=== PATIENT | female | born 1930 | race Two or more races ===

== ENCOUNTER 2016-11-24 15:52 | Inpatient (IN) | payer MEDICAID, OTHER ==
[~2016-11-24] VITALS: Ht 154.9 cm; Wt 56.5 kg
[2016-11-24] MEDS ORDERED: SOD CHLORIDE 0.9% 1,000 ML IV STA (16:04)
[2016-11-24] MEDS ORDERED: ONDANSETRON 4 MG INJ IV STA (16:04)
[2016-11-24] MEDS ORDERED: HYDR-3672 PO (16:11)
[2016-11-24] MEDS ORDERED: DONE5TAB7 PO (16:11)
[2016-11-24] MEDS ORDERED: FER325 PO (16:11)
[2016-11-24] MEDS ORDERED: ASPI-664 PO (16:12)
[2016-11-24] MEDS ORDERED: METO-429 PO (16:12)
[2016-11-24] MEDS ORDERED: AMLO-147 PO (16:12)
[2016-11-24] MEDS ORDERED: SIMV40TA2 PO (16:13)
[2016-11-24] MEDS ORDERED: SIMV20TA PO (16:13)
[2016-11-24 17:14] LABS: BASOPHIL # 0.1 10^3/ul (0.0-0.1); BASOPHILS % 0.5 % (0.0-2.0); EOSINOPHILS # 0.3 10^3/ul (0.0-0.5); EOSINOPHILS % 2.1 % (0.0-7.0); HEMATOCRIT 41.7 % (37.0-47.0); HEMOGLOBIN 13.6 g/dl (12.0-16.0); LYMPHOCYTES % 16.8 % (15.0-51.0); MEAN CORPUSCULAR HEMOGLOBIN 29.1 pg (29.0-33.0); MEAN CORPUSCULAR HGB CONC 32.6 g/dl (32.0-37.0); MEAN CORPUSCULAR VOLUME 89.1 fl (82.0-101.0); MEAN PLATELET VOLUME 9.8 fl (7.4-10.4); MONOCYTE # 0.8 10^3/ul (0.3-0.9); MONOCYTES % 6.9 % (0.0-11.0); NEUTROPHIL # 8.5 10^3/ul (1.6-7.5); NEUTROPHILS % 73.4 % (39.0-77.0); PLATELET COUNT 225 10^3/UL (140-415); RED BLOOD COUNT 4.68 10^6/ul (4.20-5.40); WHITE BLOOD COUNT 11.7 10^3/ul (4.8-10.8)
[2016-11-24 17:24] LABS: ADD UMIC YES; UR ASCORBIC ACID NEGATIVE (NEGATIVE); UR BACTERIA MANY /HPF (NONE SEEN); UR BILIRUBIN (Dip) NEGATIVE (NEGATIVE); UR BLOOD (Dip) 1+ mg/dL (NEGATIVE); UR CLARITY CLOUDY (CLEAR); UR COLOR AMBER (YELLOW); UR GLUCOSE (Dip) NEGATIVE (NEGATIVE); UR KETONES (Dip) NEGATIVE (NEGATIVE); UR LEUKOCYTE ESTERASE (Dip) 2+ Leu/ul (NEGATIVE); UR MUCUS FEW /HPF (NONE SEEN); UR NITRITE (Dip) NEGATIVE (NEGATIVE); UR RBC 18 /HPF (0-5); UR SPECIFIC GRAVITY (Dip) 1.016 (1.003-1.030); UR TOTAL PROTEIN (Dip) 2+ mg/dl (NEGATIVE); UR UROBILINOGEN (Dip) 2+ mg/dL (NEGATIVE)
[2016-11-24 17:31] LABS: CALCIUM 10.1 mg/dl (8.4-10.2); CREATININE 2.11 mg/dl (0.44-1.00); POTASSIUM 3.3 mmol/L (3.5-5.1)
[2016-11-24 17:43] LABS: TROPONIN-I 0.052 ng/ml (0.00-0.12)
[2016-11-24] MEDS ORDERED: CEFEPIME 1GM/50 ML (PMX) 50 ML IVPB ONE (18:00)
[2016-11-24] MEDS ORDERED: ACETAMINOPHEN 325 MG TAB PO PRN ×2 (18:30→20:30)
[2016-11-24] MEDS ORDERED: ONDANSETRON 4 MG INJ IV PRN (18:30)
[2016-11-24] MEDS ORDERED: SOD CHLORIDE 0.9% 1,000 ML IV ONE (18:30)
[2016-11-24] MEDS ORDERED: POTASSIUM CHLORIDE (SR) 20 MEQ TAB PO STA (19:22)
--- NOTE | 2016-11-24 19:28 | ERA ---
ER Documentation Chief Complaint Date/Time DATE: 11/24/16 TIME: 19:12 Chief Complaint BIB [facility] FOR EVAL OF HYPOTENSION. WAS AT MD'S OFFICE TO CHECK MONTANO. HPI This 86-year-old female was sent in after routine appointment at her doctor's office for a headache when they took her blood pressure and noticed significant hypotension with her blood pressure of 80/40. Patient does have some generalized weakness along with her headache. She denies any trauma to the head. Is a generalized headache is not the worst of her life and it did come on gradually. He has had chills but no fever. Denies chest pain shortness of breath. ROS All systems reviewed and are negative except as per history of present illness. Medications Home Meds Reported Medications Simvastatin* (Zocor*) 40 Mg Tablet, 40 MG PO DAILY, #30 TAB 11/24/16 Simvastatin* (Zocor*) 20 Mg Tablet, 20 MG PO QHS, #30 TAB 11/24/16 Amlodipine Besylate* (Amlodipine Besylate*) 10 Mg Tablet, 10 MG PO DAILY, #30 TAB 11/24/16 Aspirin* (Aspirin* EC) 81 Mg Tablet.dr, 81 MG PO DAILY, TAB 11/24/16 Metoprolol Tartrate* (Lopressor*) 50 Mg Tab, 50 MG PO BID, #60 TAB 11/24/16 Ferrous Sulfate* (Ferrous Sulfate*) 325 Mg Tabec, 325 MG PO QAM, TAB 11/24/16 Hydralazine Hcl* (Hydralazine Hcl*) 50 Mg Tab, 50 MG PO TID, #90 TAB 11/24/16 Donepezil* (Donepezil*) 5 Mg Tablet, 5 MG PO DAILY, #30 TAB 11/24/16 Allergies Allergies: Coded Allergies: No Known Allergy (Unverified , 11/24/16) PMhx/Soc History of Surgery: Yes (angioplasty) Anesthesia Reaction: No Hx Neurological Disorder: Yes (dementia) Hx Respiratory Disorders: No Hx Cardiac Disorders: Yes (HTN, HYPERLIPIDS, CAD) Hx Psychiatric Problems: No Hx Miscellaneous Medical Probl: Yes (DM, 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 Neck: Full range of motion..~No JVD Resp: Clear to auscultation bilaterally Cardio: Regular rate and rhythm, no murmurs Abd: Soft, non tender, non distended. Normal bowel sounds Skin: No petechiae or rashes Back: No midline or flank tenderness Ext: No cyanosis, or edema Neur: Awake and alert and oriented 3, no focal deficits, cranial nerves II through XII intact, finger to nose cerebellar normal Psych: Normal Mood and Affect Result Diagram: 11/24/16 1645 11/24/16 1645 Results 24 hrs Laboratory Tests Test 11/24/16 16:45 White Blood Count 11.710^3/ul Red Blood Count 4.6810^6/ul Hemoglobin 13.6g/dl Hematocrit 41.7% Mean Corpuscular Volume 89.1fl Mean Corpuscular Hemoglobin 29.1pg Mean Corpuscular Hemoglobin Concent 32.6g/dl Red Cell Distribution Width 12.0% Platelet Count 34113^3/UL Mean Platelet Volume 9.8fl Neutrophils % 73.4% Lymphocytes % 16.8% Monocytes % 6.9% Eosinophils % 2.1% Basophils % 0.5% Nucleated Red Blood Cells % 0.0/100WBC Neutrophils # 8.510^3/ul Lymphocytes # 2.010^3/ul Monocytes # 0.810^3/ul Eosinophils # 0.310^3/ul Basophils # 0.110^3/ul Nucleated Red Blood Cells # 0.010^3/ul Urine Color MARITA Urine Clarity CLOUDY Urine pH 5.0 Urine Specific [place] 1.016 Urine Ketones NEGATIVEmg/dL Urine Nitrite NEGATIVEmg/dL Urine Bilirubin NEGATIVEmg/dL Urine Urobilinogen 2+mg/dL Urine Leukocyte Esterase 2+Sandeep/ul Urine Microscopic RBC 18/HPF Urine Microscopic WBC 43/HPF Urine Calcium Oxalate Crystals FEW/HPF Urine Bacteria MANY/HPF Urine Mucus FEW/HPF Urine Hemoglobin 1+mg/dL Urine Glucose NEGATIVEmg/dL Urine Total Protein 2+mg/dl Sodium Level 138mmol/L Potassium Level 3.3mmol/L Chloride Level 100mmol/L Carbon Dioxide Level 28mmol/L Anion Gap 13 Blood Urea Nitrogen 24mg/dl Creatinine 2.11mg/dl Glucose Level 156mg/dl Calcium Level 10.1mg/dl Troponin I 0.052ng/ml Current Medications Medications (Trade) Dose Ordered Sig/Kwasi Route PRN Reason Start Time Stop Time Status Last Admin Dose Admin Sodium Chloride (NS) 1,000 ml @ 1,000 mls/hr Q1H STAT IV 11/24/16 16:04 11/24/16 17:03 DC 11/24/16 16:45 Ondansetron HCl 4 mg 4 mg ONCE STAT IV 11/24/16 16:04 11/24/16 16:06 DC 11/24/16 16:45 Cefepime HCl 50 ml @ 100 mls/hr ONCE ONCE IVPB 11/24/16 18:00 11/24/16 18:29 DC 11/24/16 19:07 Sodium Chloride (NS) 1,000 ml @ 1,000 mls/hr Q1H ONCE IV 11/24/16 18:30 11/24/16 19:29 11/24/16 19:07 Ondansetron HCl (Zofran Inj) 4 mg BRIDGE ORDER PRN IV NAUSEA AND/OR VOMITING 11/24/16 18:30 11/25/16 18:29 Acetaminophen (Tylenol Tab) 650 mg ER BRIDGE PRN PO MILD PAIN/FEVER 11/24/16 18:30 11/25/16 18:29 Procedures/MDM Urinary tract infection with leukocytosis and renal insufficiency. This is likely the cause of hypotension and generalized weakness in this elderly female. She was hydrated with 2 L of normal saline. Extremely low blood pressure was not repeated in the emergency room. Patient received 1 g of cefepime and urine culture was obtained. She will be admitted for further monitoring possible hypotension. There are currently no signs of a cardiac cause of hypotension the patient does have a left bundle branch block.. Is also given Zofran IV and was able to then tolerate a potassium pill of hypokalemia. Spoke with Dr. Kan who is admitting to the medical surgical floor for further monitoring and treatment EKG interpretation: Normal sinus rhythm rate of 65, left axis deviation, left bundle branch block, no ST or T-wave changes concerning for acute ischemia insole and heel stiffener interpretation: Normal sinus rhythm without arrhythmia . Departure Diagnosis: Primary Impression: UTI (urinary tract infection) Additional Impressions: Hypotension Renal insufficiency Condition: LUIS Mcneil DO Nov 24, 2016 19:23
[2016-11-24 20:00] VITALS: Ht 154.9 cm; Wt 56.5 kg
[2016-11-24] MEDS: SOD CHLORIDE 0.9% 1,000 ML IV SCH ×2 (20:30→20:45)
[2016-11-24] MEDS ORDERED: GLUCOSE GEL 15 GRAM TUBE PO PRN ×2 (20:30)
[2016-11-24] MEDS ORDERED: GLUCOSE GEL 15 GRAM TUBE BUCCAL PRN (20:30)
[2016-11-24] MEDS ORDERED: DEXTROSE 50% 50 ML SYRINGE IV PRN ×2 (20:30)
[2016-11-24] MEDS ORDERED: GLUCAGON 1 MG INJ IM PRN (20:30)
[2016-11-24] MEDS: METOPROLOL 50 MG TAB PO SCH (20:36)
[2016-11-24 20:49] VITALS: BP 127/61; RESP 20
[2016-11-24] MEDS ORDERED: NON-FORMULARY/PATIENT OWN MED (Simvastatin* (Zocor*) 20 MG) PO SCH (21:00)
[2016-11-24] MEDS ORDERED: INSULIN ASPART [NOVOLOG] 3 ML PEN SC SCH (21:00)
--- NOTE | 2016-11-24 22:04 | QN ---
Documentation Comment [id number] WAYLON GONZALES MD Nov 24, 2016 22:04
[2016-11-24] MEDS ORDERED: POTASSIUM CHLORIDE (SR) 10 MEQ TAB PO ONE (22:30)
[2016-11-25 02:00] VITALS: BP 121/58; RESP 20
[2016-11-25] MEDS ORDERED: ACCU-CHEK XX SCH (02:00)
[2016-11-25] MEDS ORDERED: ACCUCHECK AT 2AM (Patients on SS coverage) XX SCH (02:00)
[2016-11-25 06:13] LABS: BASOPHIL # 0.1 10^3/ul (0.0-0.1); BASOPHILS % 0.6 % (0.0-2.0); EOSINOPHILS # 0.3 10^3/ul (0.0-0.5); EOSINOPHILS % 3.7 % (0.0-7.0); HEMOGLOBIN 11.2 g/dl (12.0-16.0); LYMPHOCYTES # 2.4 10^3/ul (0.8-2.9); MEAN CORPUSCULAR HEMOGLOBIN 28.9 pg (29.0-33.0); MEAN CORPUSCULAR VOLUME 90.4 fl (82.0-101.0); MONOCYTE # 0.9 10^3/ul (0.3-0.9); MONOCYTES % 10.7 % (0.0-11.0); NEUTROPHIL # 4.3 10^3/ul (1.6-7.5); NEUTROPHILS % 54.7 % (39.0-77.0); PLATELET COUNT 200 10^3/UL (140-415); RED BLOOD COUNT 3.87 10^6/ul (4.20-5.40); RED CELL DISTRIBUTION WIDTH 12.2 % (11.5-14.5); WHITE BLOOD COUNT 7.9 10^3/ul (4.8-10.8)
[2016-11-25 06:57] LABS: ALBUMIN 2.8 g/dl (3.3-4.9); ALBUMIN/GLOBULIN RATIO 0.96; BILIRUBIN,INDIRECT 0.5 mg/dl (0-1.1); BILIRUBIN,TOTAL 0.5 mg/dl (0.2-1.3); CREATININE 1.86 mg/dl (0.44-1.00); POTASSIUM 3.5 mmol/L (3.5-5.1); TOTAL PROTEIN 5.7 g/dl (6.1-8.1)
[2016-11-25 07:23] VITALS: BP 120/60; RESP 18
[2016-11-25] MEDS ORDERED: INSULIN ASPART [NOVOLOG] 3 ML PEN SC SCH (08:00)
[2016-11-25] MEDS: Insulin NOVOLOG SS MILD Algorithm (SS with meals and bedtime) SC SCH ×4 (08:15→21:00)
[2016-11-25] MEDS: CEFTRIAXONE 1 GM/50 ML (PMX) 50 ML IVPB SCH (08:25)
[2016-11-25] MEDS: ASPIRIN (EC) 81 MG TAB PO SCH (08:25)
[2016-11-25] MEDS: DONEPEZIL 5 MG TAB PO SCH (08:25)
[2016-11-25] MEDS: METOPROLOL 50 MG TAB PO SCH ×2 (08:26→21:00)
[2016-11-25] MEDS: FERROUS SULFATE (EC) 325 MG TAB PO SCH (08:26)
[2016-11-25] MEDS: AMLODIPINE 10 MG TAB PO SCH (08:27)
[2016-11-25] MEDS: SOD CHLORIDE 0.9% 1,000 ML IV SCH ×2 (08:33→16:30)
--- NOTE | 2016-11-25 11:09 | HP ---
DATE OF ADMISSION: 11/24/2016 HISTORY OF PRESENT ILLNESS: Clair Morillo is an 86-year-old female who has a history of hypertension, dementia, dyslipidemia, ckd to the hospital. came to er for weakness,ams,poor responsive ness Blood pressure 113/62, PMH dm ckd dementia ch coon allergy neg fh neg meds see list ROS unavailable toget PHYSICAL EXAMINATION: GENERAL: The patient is awake and alert. VITAL SIGNS: Stable. Blood pressure 113/62,afebrile. HEENT: Head is atraumatic, normocephalic. Pupils equal, reactive to light. NECK: Supple. There is no JVD. LUNGS: Clear. CARDIOVASCULAR: S1, S2 is normal. CENTRAL NERVOUS SYSTEM: dementia no deficit. IMPRESSION: The patient has SIRS htn dm CKD uti hx dementia PLAN: iv fluid continue sliding scale antibiotic Dictated By: WAYLON GONZALES MD BS/NTS Conf#: [id number] DID#: [id number] MTDD
[2016-11-25 13:08] VITALS: BP 136/64; RESP 18
[2016-11-25] MEDS ORDERED: BARIUM SULF 2% 450 ML BTL (BERRY SMOOTHIE) PO ONE (13:30)
--- NOTE | 2016-11-25 15:45 | RADRPT ---
PROCEDURE: XR Chest. CLINICAL INDICATION: ckd TECHNIQUE: AP view of the chest were obtained. COMPARISON: None. FINDINGS: The cardiomediastinal silhouette is within normal limits. The lungs are clear. No signs of pleural f luid or pneumothorax are seen. Degenerative changes of the thoracic spine. IMPRESSION: No evidence for active cardiopulmonary disease. RPTAT: QQ .Brittany Mariscal MD, Date Time Electronically viewed and signed by .Brittany Mariscal MD, on 11/25/2016 15:44 .G/
--- NOTE | 2016-11-25 16:37 | PN ---
Date/Time of Note Date/Time of Note DATE: 11/25/16 TIME: 16:35 Assessment/Plan VTE Prophylaxis VTE Prophylaxis Intervention: other Lines/Catheters IV Catheter Type (from Nrs): Peripheral IV Urinary Cath still in place: Yes Reason Cath still needed: other (indicate) Assessment/Plan Chief Complaint/Hosp Course UTI CKD DM HTN INCONTINENCE URINE/STOOL PLAN CT ABD ANTIBIOTIC Problems: Subjective 24 Hr Interval Summary Respiratory: no complaints Gastrointestinal: diarrhea (occ+) Exam/Review of Systems Vital Signs Vitals Vital Signs Date Time Temp Pulse Resp B/P Pulse Ox O2 Delivery O2 Flow Rate FiO2 11/25/16 13:08 97.8 71 18 136/64 97 11/24/16 19:11 Room Air Intake and Output 11/24/16 11/24/16 11/25/16 15:00 23:00 07:00 Intake Total 50 ml 600 ml Balance 50 ml 600 ml Exam Respiratory: clear to auscultation Cardiovascular: regular rate and rhythm Gastrointestinal: bowel sounds (+), soft Extremities: edema (+) Neurological: other (dementia+) Results Result Diagram: 11/25/16 0526 11/25/16 0526 Results 24 hrs Laboratory Tests Test 11/24/16 16:45 11/24/16 20:46 11/25/16 05:26 11/25/16 08:24 White Blood Count 11.7 H 7.9 # Red Blood Count 4.68 3.87 L Hemoglobin 13.6 11.2 L Hematocrit 41.7 35.0 L Mean Corpuscular Volume 89.1 90.4 Mean Corpuscular Hemoglobin 29.1 28.9 L Mean Corpuscular Hemoglobin Concent 32.6 32.0 Red Cell Distribution Width 12.0 12.2 Platelet Count 225 200 Mean Platelet Volume 9.8 10.0 Neutrophils % 73.4 54.7 Lymphocytes % 16.8 30.0 Monocytes % 6.9 10.7 Eosinophils % 2.1 3.7 Basophils % 0.5 0.6 Nucleated Red Blood Cells % 0.0 0.0 Neutrophils # 8.5 H 4.3 Lymphocytes # 2.0 2.4 Monocytes # 0.8 0.9 Eosinophils # 0.3 0.3 Basophils # 0.1 0.1 Nucleated Red Blood Cells # 0.0 0.0 Urine Color MARITA Urine Clarity CLOUDY A Urine pH 5.0 Urine Specific [place] 1.016 Urine Ketones NEGATIVE Urine Nitrite NEGATIVE Urine Bilirubin NEGATIVE Urine Urobilinogen 2+ H Urine Leukocyte Esterase 2+ H Urine Microscopic RBC 18 H Urine Microscopic WBC 43 H Urine Calcium Oxalate Crystals FEW A Urine Bacteria MANY A Urine Mucus FEW A Urine Hemoglobin 1+ H Urine Glucose NEGATIVE Urine Total Protein 2+ H Sodium Level 138 140 Potassium Level 3.3 L 3.5 Chloride Level 100 109 Carbon Dioxide Level 28 25 Anion Gap 13 10 Blood Urea Nitrogen 24 H 20 Creatinine 2.11 H 1.86 H Glucose Level 156 83 # Calcium Level 10.1 9.0 Troponin I 0.052 Bedside Glucose 121 87 Hemoglobin A1c 8.2 H Total Bilirubin 0.5 Direct Bilirubin 0.00 Indirect Bilirubin 0.5 Aspartate Amino Transf (AST/SGOT) 21 Alanine Aminotransferase (ALT/SGPT) 26 Alkaline Phosphatase 79 Total Protein 5.7 L Albumin 2.8 L Globulin 2.90 Albumin/Globulin Ratio 0.96 Test 11/25/16 12:09 Bedside Glucose 102 Medications Medications Current Medications Ceftriaxone Sodium (Rocephin) 50 ml @ 100 mls/hr Q24H IVPB Last administered on 11/25/16 08:25; Admin Dose 100 MLS/HR; Start 11/25/16 at 08:00 Acetaminophen 650 mg 650 mg Q6H PRN PO PAIN AND OR ELEVATED TEMP; Start at 20:30 Sodium Chloride (NS) 1,000 ml @ 50 mls/hr Q20H IV Last administered on 08:33; Admin Dose 50 MLS/HR; Start 11/24/16 at 20:30 Aspirin (Halfprin) 81 mg DAILY PO Last administered on 11/25/16 08:25; Admin Dose 81 MG; Start 11/25/16 at 09:00 Ferrous Sulfate (Ferrous Sulfate (Ec)) 325 mg QAM PO Last administered on 08:26; Admin Dose 325 MG; Start 11/25/16 at 09:00 Atorvastatin Calcium (Lipitor) 20 mg DAILY@21 PO ; Start 11/25/16 at 21:00 Hydralazine HCl (Apresoline) 50 mg TID PO Last administered on 11/25/16 13:11 ; Admin Dose 50 MG; Start 11/24/16 at 21:00 Amlodipine Besylate (Norvasc) 10 mg DAILY PO ; Start 11/25/16 at 09:00 Metoprolol Tartrate (Lopressor) 50 mg BID PO Last administered on 11/25/16 08: 26; Admin Dose 50 MG; Start 11/24/16 at 21:00 Donepezil HCl (Aricept) 5 mg DAILY PO Last administered on 11/25/16 08:25; Admin Dose 5 MG; Start 11/25/16 at 09:00 Miscellaneous Information 1 ea NOTE XX ; Start 11/24/16 at 20:30 Glucose (Glutose) 15 gm Q15M PRN PO DECREASED GLUCOSE; Start 11/24/16 at 20:30 Glucose (Glutose) 22.5 gm Q15M PRN PO DECREASED GLUCOSE; Start 11/24/16 at 20: 30 Dextrose (D50w Syringe) 25 ml Q15M PRN IV DECREASED GLUCOSE; Start 11/24/16 at 20:30 Dextrose (D50w Syringe) 50 ml Q15M PRN IV DECREASED GLUCOSE; Start 11/24/16 at 20:30 Glucagon (Glucagen) 1 mg Q15M PRN IM DECREASED GLUCOSE; Start 11/24/16 at 20:30 Glucose (Glutose) 15 gm Q15M PRN BUCCAL DECREASED GLUCOSE; Start 11/24/16 at 20 :30 Diagnostic Test (Pha) (Accu-Chek) 1 ea 02 XX ; Start 11/26/16 at 02:00 Influenza Virus Vaccine (Fluzone) 0.5 ml ONCE ONCE IM* ; Start 11/26/16 at 09:00 ; Stop 11/26/16 at 09:01 WAYLON GONZALES MD Nov 25, 2016 16:37
--- NOTE | 2016-11-25 16:39 | RADRPT ---
PROCEDURE: CT Abdomen and Pelvis without contrast. CLINICAL INDICATION: Pain. TECHNIQUE: Multiple contiguous axial CT images of the abdomen and pelvis were obtained without the administration of intravenous contrast. Coronal and sagittal reconstructions were also performed. CTDIvol (mGy): 9.91; Total Exam DLP (mGy-cm): 611.94. One or more of the following dose reduction techniques were utilized: - Automated exposure control. - Adjustment of the mA and/or kV according to patient size. - Use of iterative reconstruction technique. COMPARISON: Abdominal ultrasound 12/03/2015. FINDINGS: Limited imaging of the lower thorax demonstrates a 2.0 cm irregular nodule of the right middle lobe which is partially accentuated by breath motion artifact. The heart is enlarged. The liver and spleen are homogeneous in density. The gallbladder is mildly distended. The pancreas and adrenal glands are unremarkable. The kidneys are symmetric in size. There are no nephroureteral stones. There is no hydronephrosis o r abnormal perinephric inflammation. The abdominal aorta is normal in caliber. Atherosclerotic calcification is present. There is no per iaortic / retroperitoneal lymphadenopathy. The stomach and small intestines are unremarkable. A large volume of stool seen throughout the colon . The appendix is normal. There are no focal inflammatory changes of the mesentery. There is no me senteric lymphadenopathy. There is no ascites. There is no pneumatosis or pneumoperitoneum. The bladder is collapsed around a Reyes. The uterus and adnexa are grossly unremarkable. There is no free pelvic fluid. There is no pelvic sidewall or inguinal lymphadenopathy. A large volume of form ed stool seen within the rectum. Mild concentric rectal wall thickening with perirectal infiltration is observed. Degenerative changes are seen throughout the spine. Body wall soft tissues are unremarkable. IMPRESSION: Large volume of stool throughout the colon, particularly within the rectum. Fecal impaction is likel y present. There is associated mild concentric rectal wall thickening with infiltration of the perir ectal fat suggesting underlying inflammation. 2.0 cm irregular nodule of the right middle lobe, partially accentuated by breath motion artifact. R ecommend follow up with dedicated CT chest. No evidence of abdominopelvic mass or lymphadenopathy. RPTAT: AAQQ .Crystal Mead MD, Date Time Electronically viewed and signed by .Crystal Mead MD, on 11/25/2016 16:39 .T/
[2016-11-25 20:00] VITALS: BP 119/60; RESP 20
[2016-11-25] MEDS: ATORVASTATIN 20 MG TAB PO SCH (21:00)
[2016-11-25] MEDS: ACCUCHECK AT 2AM (Patients on SS coverage) XX SCH (21:01)
[2016-11-26 02:00] VITALS: BP 135/68; RESP 20
[2016-11-26 07:08] LABS: ALBUMIN/GLOBULIN RATIO 0.88; BILIRUBIN,INDIRECT 0.5 mg/dl (0-1.1); BILIRUBIN,TOTAL 0.5 mg/dl (0.2-1.3); CALCIUM 9.5 mg/dl (8.4-10.2); CREATININE 1.74 mg/dl (0.44-1.00); POTASSIUM 3.6 mmol/L (3.5-5.1); TOTAL PROTEIN 6.4 g/dl (6.1-8.1)
[2016-11-26 08:04] VITALS: BP 164/75; RESP 16
[2016-11-26] MEDS: Insulin NOVOLOG SS MILD Algorithm (SS with meals and bedtime) SC SCH ×4 (08:09→20:34)
[2016-11-26] MEDS ORDERED: INFLUENZA VIRUS VACCINE 0.5 ML (DISPENSING) IM* ONE (09:00)
[2016-11-26] MEDS: METOPROLOL 50 MG TAB PO SCH ×2 (09:00→20:33)
[2016-11-26] MEDS: SOD CHLORIDE 0.9% 1,000 ML IV SCH ×2 (12:30→22:30)
[2016-11-26] MEDS: ASPIRIN (EC) 81 MG TAB PO SCH (13:06)
[2016-11-26] MEDS: DONEPEZIL 5 MG TAB PO SCH (13:07)
[2016-11-26] MEDS: FERROUS SULFATE (EC) 325 MG TAB PO SCH (13:07)
[2016-11-26] MEDS: AMLODIPINE 10 MG TAB PO SCH (13:07)
[2016-11-26 15:14] VITALS: BP 136/71; RESP 18
[2016-11-26] MEDS: CEFTRIAXONE 1 GM/50 ML (PMX) 50 ML IVPB SCH (16:03)
--- NOTE | 2016-11-26 16:25 | PN ---
Date/Time of Note Date/Time of Note DATE: 11/26/16 TIME: 16:24 Assessment/Plan VTE Prophylaxis VTE Prophylaxis Intervention: anti-embolic stocking Lines/Catheters IV Catheter Type (from Nrsg): Peripheral IV Urinary Cath still in place: Yes Reason Cath still needed: urinary retention Assessment/Plan Chief Complaint/Hosp Course 1. UTI 2. CKD 3. DM 4. HTN 5. INCONTINENCE URINE/STOOL 6. dementia Problems: Assessment/Plan 1. continue a/b 2. Megace Subjective 24 Hr Interval Summary Musculoskeletal: bone/joint pain (right shoulder) Exam/Review of Systems Vital Signs Vitals Vital Signs Date Time Temp Pulse Resp B/P Pulse Ox O2 Delivery O2 Flow Rate FiO2 11/26/16 15:14 99.2 74 18 136/71 96 11/24/16 19:11 Room Air Intake and Output 11/25/16 11/25/16 11/26/16 15:00 23:00 07:00 Intake Total 200 ml 620 ml 470 ml Output Total 800 ml 400 ml Balance 200 ml -180 ml 70 ml Exam Constitutional: alert, oriented (name) Cardiovascular: regular rate and rhythm Gastrointestinal: soft Musculoskeletal: other (full ROM r shoulder) Results Result Diagram: 11/25/16 0526 11/26/16 0528 Results 24 hrs Laboratory Tests Test 11/25/16 17:25 11/25/16 20:59 11/26/16 05:28 11/26/16 08:08 Bedside Glucose 122 127 116 Sodium Level 139 Potassium Level 3.6 Chloride Level 109 Carbon Dioxide Level 25 Anion Gap 9 Blood Urea Nitrogen 20 Creatinine 1.74 H Glucose Level 109 Calcium Level 9.5 Total Bilirubin 0.5 Direct Bilirubin 0.00 Indirect Bilirubin 0.5 Aspartate Amino Transf (AST/SGOT) 29 Alanine Aminotransferase (ALT/SGPT) 29 Alkaline Phosphatase 85 Total Protein 6.4 Albumin 3.0 L Globulin 3.40 H Albumin/Globulin Ratio 0.88 Test 11/26/16 12:08 Bedside Glucose 113 Medications Medications Current Medications Ceftriaxone Sodium (Rocephin) 50 ml @ 100 mls/hr Q24H IVPB Last administered on 11/26/16t 16:03; Admin Dose 100 MLS/HR; Start 11/25/16 at 08:00 Acetaminophen 650 mg 650 mg Q6H PRN PO PAIN AND OR ELEVATED TEMP; Start at 20:30 Sodium Chloride (NS) 1,000 ml @ 50 mls/hr Q20H IV Last administered on 08:33; Admin Dose 50 MLS/HR; Start 11/24/16 at 20:30 Aspirin (Halfprin) 81 mg DAILY PO Last administered on 11/26/16 13:06; Admin Dose 81 MG; Start 11/25/16 at 09:00 Ferrous Sulfate (Ferrous Sulfate (Ec)) 325 mg QAM PO Last administered on 13:07; Admin Dose 325 MG; Start 11/25/16 at 09:00 Atorvastatin Calcium (Lipitor) 20 mg DAILY@21 PO Last administered on 21:00; Admin Dose 20 MG; Start 11/25/16 at 21:00 Hydralazine HCl (Apresoline) 50 mg TID PO Last administered on 11/26/16 13:16 ; Admin Dose 50 MG; Start 11/24/16 at 21:00 Amlodipine Besylate (Norvasc) 10 mg DAILY PO Last administered on 11/26/16 13: 07; Admin Dose 10 MG; Start 11/25/16 at 09:00 Metoprolol Tartrate (Lopressor) 50 mg BID PO Last administered on 11/26/16 09: 00; Admin Dose 50 MG; Start 11/24/16 at 21:00 Donepezil HCl (Aricept) 5 mg DAILY PO Last administered on 11/26/16 13:07; Admin Dose 5 MG; Start 11/25/16 at 09:00 Miscellaneous Information 1 ea NOTE XX ; Start 11/24/16 at 20:30 Glucose (Glutose) 15 gm Q15M PRN PO DECREASED GLUCOSE; Start 11/24/16 at 20:30 Glucose (Glutose) 22.5 gm Q15M PRN PO DECREASED GLUCOSE; Start 11/24/16 at 20: 30 Dextrose (D50w Syringe) 25 ml Q15M PRN IV DECREASED GLUCOSE; Start 11/24/16 at 20:30 Dextrose (D50w Syringe) 50 ml Q15M PRN IV DECREASED GLUCOSE; Start 11/24/16 at 20:30 Glucagon (Glucagen) 1 mg Q15M PRN IM DECREASED GLUCOSE; Start 11/24/16 at 20:30 Glucose (Glutose) 15 gm Q15M PRN BUCCAL DECREASED GLUCOSE; Start 11/24/16 at 20 :30 Diagnostic Test (Pha) (Accu-Chek) 1 ea 02 XX ; Start 11/26/16 at 02:00 DANN GONZALEZ Nov 26, 2016 16:25
[2016-11-26] MEDS ORDERED: LORAZEPAM 2 MG INJ IV PRN (17:00)
[2016-11-26] MEDS ORDERED: QUETIAPINE 25 MG TAB PO ONE (17:00)
[2016-11-26] MEDS: LUBIPROSTONE 24 MCG CAP PO SCH (17:22)
[2016-11-26 18:00] VITALS: BP 156/72; PULSE 65; RESP 16
[2016-11-26 19:56] VITALS: BP 139/72; RESP 18
[2016-11-26] MEDS: ATORVASTATIN 20 MG TAB PO SCH (20:34)
[2016-11-26] MEDS: MEGESTROL (40 MG/ML) 10ML CUP PO SCH (20:34)
[2016-11-26 22:00] VITALS: BP 144/73; RESP 19
[2016-11-27] VITALS (13 sets, daily range): BP systolic 99–166; BP diastolic 54–90; PULSE 79–85; RESP 16–20
[2016-11-27] MEDS: ACCUCHECK AT 2AM (Patients on SS coverage) XX SCH (01:08)
[2016-11-27 05:32] LABS: BASOPHILS % 0.3 % (0.0-2.0); EOSINOPHILS # 0.3 10^3/ul (0.0-0.5); EOSINOPHILS % 3.5 % (0.0-7.0); HEMATOCRIT 34.8 % (37.0-47.0); HEMOGLOBIN 11.2 g/dl (12.0-16.0); LYMPHOCYTES # 2.6 10^3/ul (0.8-2.9); LYMPHOCYTES % 29.2 % (15.0-51.0); MEAN CORPUSCULAR HEMOGLOBIN 28.3 pg (29.0-33.0); MEAN CORPUSCULAR HGB CONC 32.2 g/dl (32.0-37.0); MEAN CORPUSCULAR VOLUME 87.9 fl (82.0-101.0); MEAN PLATELET VOLUME 9.9 fl (7.4-10.4); MONOCYTE # 0.9 10^3/ul (0.3-0.9); MONOCYTES % 9.9 % (0.0-11.0); NEUTROPHIL # 5.1 10^3/ul (1.6-7.5); NEUTROPHILS % 56.8 % (39.0-77.0); PLATELET COUNT 190 10^3/UL (140-415); RED BLOOD COUNT 3.96 10^6/ul (4.20-5.40); RED CELL DISTRIBUTION WIDTH 12.2 % (11.5-14.5)
[2016-11-27 05:58] LABS: CALCIUM 9.1 mg/dl (8.4-10.2); CREATININE 1.52 mg/dl (0.44-1.00); POTASSIUM 3.3 mmol/L (3.5-5.1)
[2016-11-27] MEDS: Insulin NOVOLOG SS MILD Algorithm (SS with meals and bedtime) SC SCH ×4 (08:15→20:14)
[2016-11-27] MEDS: SOD CHLORIDE 0.9% 1,000 ML IV SCH ×2 (08:30→19:20)
[2016-11-27] MEDS: CEFTRIAXONE 1 GM/50 ML (PMX) 50 ML IVPB SCH (08:51)
[2016-11-27] MEDS: METOPROLOL 50 MG TAB PO SCH ×2 (08:51→20:13)
[2016-11-27] MEDS: DONEPEZIL 5 MG TAB PO SCH (08:52)
[2016-11-27] MEDS: LUBIPROSTONE 24 MCG CAP PO SCH ×2 (08:52→17:18)
[2016-11-27] MEDS: MEGESTROL (40 MG/ML) 10ML CUP PO SCH ×2 (08:52→20:13)
[2016-11-27] MEDS: FERROUS SULFATE (EC) 325 MG TAB PO SCH (08:52)
[2016-11-27] MEDS: ASPIRIN (EC) 81 MG TAB PO SCH (08:52)
[2016-11-27] MEDS: QUETIAPINE 25 MG TAB NGT SCH (08:52)
[2016-11-27] MEDS: AMLODIPINE 10 MG TAB PO SCH (08:52)
[2016-11-27] MEDS ORDERED: BISACODYL 10 MG SUPP PR PRN (15:30)
[2016-11-27] MEDS ORDERED: POTASSIUM CHLORIDE 20 MEQ POWDER FOR ORAL SOLN PO ONE (15:30)
--- NOTE | 2016-11-27 15:35 | PN ---
Date/Time of Note Date/Time of Note DATE: 11/27/16 TIME: 15:33 Assessment/Plan VTE Prophylaxis VTE Prophylaxis Intervention: anti-embolic stocking Lines/Catheters IV Catheter Type (from Nrsg): Peripheral IV Urinary Cath still in place: Yes Reason Cath still needed: urinary retention Assessment/Plan Chief Complaint/Hosp Course 1. UTI resolved 2. CKD mild 3. DM type II controlled 4. HTN, controlled 5. INCONTINENCE URINE 6. dementia 7. constipation Problems: Assessment/Plan 1. Renew restraints 2. Relieve constipation Subjective 24 Hr Interval Summary Free Text/Dictation no stool for 4 days Exam/Review of Systems Vital Signs Vitals Vital Signs Date Time Temp Pulse Resp B/P Pulse Ox O2 Delivery O2 Flow Rate FiO2 11/27/16 14:05 98.4 85 18 148/77 96 11/27/16 12:00 Room Air Intake and Output 11/26/16 11/26/16 11/27/16 15:00 23:00 07:00 Intake Total 690 ml 500 ml Output Total 500 ml 650 ml Balance 190 ml -150 ml Exam Constitutional: frail, other (sleeping) Respiratory: clear to auscultation Cardiovascular: regular rate and rhythm Gastrointestinal: soft Extremities: normal pulses Results Result Diagram: 11/27/16 0505 11/27/16 0505 Results 24 hrs Laboratory Tests Test 11/26/16 17:24 11/26/16 20:12 11/27/16 05:05 11/27/16 08:09 Bedside Glucose 122 146 100 White Blood Count 9.0 Red Blood Count 3.96 L Hemoglobin 11.2 L Hematocrit 34.8 L Mean Corpuscular Volume 87.9 Mean Corpuscular Hemoglobin 28.3 L Mean Corpuscular Hemoglobin Concent 32.2 Red Cell Distribution Width 12.2 Platelet Count 190 Mean Platelet Volume 9.9 Neutrophils % 56.8 Lymphocytes % 29.2 Monocytes % 9.9 Eosinophils % 3.5 Basophils % 0.3 Nucleated Red Blood Cells % 0.0 Neutrophils # 5.1 Lymphocytes # 2.6 Monocytes # 0.9 Eosinophils # 0.3 Basophils # 0.0 Nucleated Red Blood Cells # 0.0 Sodium Level 142 Potassium Level 3.3 L Chloride Level 112 H Carbon Dioxide Level 23 Anion Gap 10 Blood Urea Nitrogen 18 Creatinine 1.52 H Glucose Level 112 Calcium Level 9.1 Test 11/27/16 12:05 Bedside Glucose 206 Medications Medications Current Medications Ceftriaxone Sodium (Rocephin) 50 ml @ 100 mls/hr Q24H IVPB Last administered on 11/27/16 08:51; Admin Dose 100 MLS/HR; Start 11/25/16 at 08:00 Acetaminophen 650 mg 650 mg Q6H PRN PO PAIN AND OR ELEVATED TEMP; Start at 20:30 Sodium Chloride (NS) 1,000 ml @ 50 mls/hr Q20H IV Last administered on 22:30; Admin Dose 50 MLS/HR; Start 11/24/16 at 20:30 Aspirin (Halfprin) 81 mg DAILY PO Last administered on 11/27/16 08:52; Admin Dose 81 MG; Start 11/25/16 at 09:00 Ferrous Sulfate (Ferrous Sulfate (Ec)) 325 mg QAM PO Last administered on 08:52; Admin Dose 325 MG; Start 11/25/16 at 09:00 Atorvastatin Calcium (Lipitor) 20 mg DAILY@21 PO Last administered on 20:34; Admin Dose 20 MG; Start 11/25/16 at 21:00 Hydralazine HCl (Apresoline) 50 mg TID PO Last administered on 11/27/16 08:51 ; Admin Dose 50 MG; Start 11/24/16 at 21:00 Amlodipine Besylate (Norvasc) 10 mg DAILY PO Last administered on 11/27/16 08: 52; Admin Dose 10 MG; Start 11/25/16 at 09:00 Metoprolol Tartrate (Lopressor) 50 mg BID PO Last administered on 11/27/16 08: 51; Admin Dose 50 MG; Start 11/24/16 at 21:00 Donepezil HCl (Aricept) 5 mg DAILY PO Last administered on 11/27/16 08:52; Admin Dose 5 MG; Start 11/25/16 at 09:00 Miscellaneous Information 1 ea NOTE XX ; Start 11/24/16 at 20:30 Glucose (Glutose) 15 gm Q15M PRN PO DECREASED GLUCOSE; Start 11/24/16 at 20:30 Glucose (Glutose) 22.5 gm Q15M PRN PO DECREASED GLUCOSE; Start 11/24/16 at 20: 30 Dextrose (D50w Syringe) 25 ml Q15M PRN IV DECREASED GLUCOSE; Start 11/24/16 at 20:30 Dextrose (D50w Syringe) 50 ml Q15M PRN IV DECREASED GLUCOSE; Start 11/24/16 at 20:30 Glucagon (Glucagen) 1 mg Q15M PRN IM DECREASED GLUCOSE; Start 11/24/16 at 20:30 Glucose (Glutose) 15 gm Q15M PRN BUCCAL DECREASED GLUCOSE; Start 11/24/16 at 20 :30 Diagnostic Test (Pha) (Accu-Chek) XX ; Start 11/26/16 at 02:00 Megestrol Acetate (Megace Susp) 400 mg BID PO Last administered on 11/27/16 08 :52; Admin Dose 400 MG; Start 11/26/16 at 21:00 Quetiapine Fumarate (Seroquel) 12.5 mg DAILY NGT Last administered on 08:52; Admin Dose 12.5 MG; Start 11/27/16 at 09:00 Lorazepam (Ativan) 1 mg Q6H PRN IV AGITATION Last administered on 11/26/16 17: 11; Admin Dose 1 MG; Start 11/26/16 at 17:00 Lactulose (Enulose) 20 gm Q8 PRN PO CONSTIPATION; Start 11/27/16 at 15:30; Status UNV Bisacodyl (Dulcolax Supp) 10 mg DAILY PRN HI CONSTIPATION; Start 11/27/16 at 15 :30; Status UNV Sodium Biphosphate/ Sodium Phosphate (Fleet Enema) 133 ml ONCE ONCE HI ; Start 11/27/16 at 15:30; Stop 11/27/16 at 15:31; Status UNV DANN GONZALEZ Nov 27, 2016 15:35
[2016-11-27] MEDS ORDERED: NA PHOSPHATE/BIPHOS 133 ML ENEMA PR ONE (16:00)
[2016-11-27] MEDS: LACTULOSE 30ML CUP PO PRN (17:18)
[2016-11-27] MEDS: ATORVASTATIN 20 MG TAB PO SCH (20:13)
[2016-11-28] VITALS (10 sets, daily range): BP systolic 129–162; BP diastolic 70–90; PULSE 79–85; RESP 16–20
[2016-11-28] MEDS: ACCUCHECK AT 2AM (Patients on SS coverage) XX SCH (01:33)
[2016-11-28] MEDS: Insulin NOVOLOG SS MILD Algorithm (SS with meals and bedtime) SC SCH ×2 (08:15→12:32)
[2016-11-28 08:22] LABS: BASOPHILS % 0.5 % (0.0-2.0); EOSINOPHILS # 0.4 10^3/ul (0.0-0.5); EOSINOPHILS % 5.4 % (0.0-7.0); HEMATOCRIT 34.7 % (37.0-47.0); HEMOGLOBIN 11.6 g/dl (12.0-16.0); LYMPHOCYTES % 26.6 % (15.0-51.0); MEAN CORPUSCULAR HEMOGLOBIN 29.3 pg (29.0-33.0); MEAN CORPUSCULAR HGB CONC 33.4 g/dl (32.0-37.0); MEAN CORPUSCULAR VOLUME 87.6 fl (82.0-101.0); MONOCYTE # 0.8 10^3/ul (0.3-0.9); NEUTROPHIL # 4.3 10^3/ul (1.6-7.5); NEUTROPHILS % 57.2 % (39.0-77.0); PLATELET COUNT 195 10^3/UL (140-415); RED BLOOD COUNT 3.96 10^6/ul (4.20-5.40); WHITE BLOOD COUNT 7.6 10^3/ul (4.8-10.8)
[2016-11-28 08:50] LABS: CALCIUM 8.7 mg/dl (8.4-10.2); CREATININE 1.25 mg/dl (0.44-1.00); POTASSIUM 3.3 mmol/L (3.5-5.1)
[2016-11-28] MEDS: CEFTRIAXONE 1 GM/50 ML (PMX) 50 ML IVPB SCH (09:03)
[2016-11-28] MEDS: LACTULOSE 30ML CUP PO PRN (09:05)
[2016-11-28] MEDS: MEGESTROL (40 MG/ML) 10ML CUP PO SCH (09:05)
[2016-11-28] MEDS: FERROUS SULFATE (EC) 325 MG TAB PO SCH (09:05)
[2016-11-28] MEDS: ASPIRIN (EC) 81 MG TAB PO SCH (09:06)
[2016-11-28] MEDS: LUBIPROSTONE 24 MCG CAP PO SCH (09:06)
[2016-11-28] MEDS: METOPROLOL 50 MG TAB PO SCH (09:06)
[2016-11-28] MEDS: QUETIAPINE 25 MG TAB NGT SCH (09:07)
[2016-11-28] MEDS: DONEPEZIL 5 MG TAB PO SCH (09:07)
[2016-11-28] MEDS: AMLODIPINE 10 MG TAB PO SCH (09:07)
--- NOTE | 2016-11-28 13:59 | PN ---
Date/Time of Note Date/Time of Note DATE: 11/28/16 TIME: 13:57 Assessment/Plan VTE Prophylaxis VTE Prophylaxis Intervention: anti-embolic stocking Lines/Catheters IV Catheter Type (from Nrsg): Peripheral IV Urinary Cath still in place: Yes Reason Cath still needed: urinary retention Assessment/Plan Chief Complaint/Hosp Course 1. UTI resolved 2. CKD mild 3. DM type II controlled 4. HTN, controlled 5. INCONTINENCE URINE 6. dementia 7. constipation Problems: Assessment/Plan 1. Continue restraints for safety 2. continue current treatment Subjective 24 Hr Interval Summary Subjective hx not possible: other (pt speaking Penjabi, unable to find translators for her) Exam/Review of Systems Vital Signs Vitals Vital Signs Date Time Temp Pulse Resp B/P Pulse Ox O2 Delivery O2 Flow Rate FiO2 11/28/16 12:00 98.4 85 16 142/73 Room Air 11/28/16 07:43 100 Intake and Output 11/27/16 11/27/16 11/28/16 15:00 23:00 07:00 Intake Total 50 ml 1280 ml 320 ml Output Total 500 ml 650 ml Balance 50 ml 780 ml -330 ml Exam Constitutional: alert, oriented (1) Head: atraumatic, normocephalic ENMT: nl external ears & nose Respiratory: diminished breath sounds Cardiovascular: regular rate and rhythm Gastrointestinal: soft Genitourinary - Female: nl adnexae, nl external genitalia Results Result Diagram: 11/28/16 0752 11/28/16 0752 Results 24 hrs Laboratory Tests Test 11/27/16 18:07 11/27/16 20:11 11/28/16 07:52 11/28/16 09:00 Bedside Glucose 140 151 101 White Blood Count 7.6 Red Blood Count 3.96 L Hemoglobin 11.6 L Hematocrit 34.7 L Mean Corpuscular Volume 87.6 Mean Corpuscular Hemoglobin 29.3 Mean Corpuscular Hemoglobin Concent 33.4 Red Cell Distribution Width 12.0 Platelet Count 195 Mean Platelet Volume 10.0 Neutrophils % 57.2 Lymphocytes % 26.6 Monocytes % 10.0 Eosinophils % 5.4 Basophils % 0.5 Nucleated Red Blood Cells % 0.0 Neutrophils # 4.3 Lymphocytes # 2.0 Monocytes # 0.8 Eosinophils # 0.4 Basophils # 0.0 Nucleated Red Blood Cells # 0.0 Sodium Level 141 Potassium Level 3.3 L Chloride Level 113 H Carbon Dioxide Level 21 Anion Gap 10 Blood Urea Nitrogen 15 Creatinine 1.25 H Glucose Level 109 Calcium Level 8.7 Test 11/28/16 12:28 Bedside Glucose 150 Medications Medications Current Medications Ceftriaxone Sodium (Rocephin) 50 ml @ 100 mls/hr Q24H IVPB Last administered on 11/28/16 09:03; Admin Dose 100 MLS/HR; Start 11/25/16 at 08:00 Acetaminophen 650 mg 650 mg Q6H PRN PO PAIN AND OR ELEVATED TEMP; Start at 20:30 Sodium Chloride (NS) 1,000 ml @ 50 mls/hr Q20H IV Last administered on 19:20; Admin Dose 50 MLS/HR; Start 11/24/16 at 20:30 Aspirin (Halfprin) 81 mg DAILY PO Last administered on 11/28/16 09:06; Admin Dose 81 MG; Start 11/25/16 at 09:00 Ferrous Sulfate (Ferrous Sulfate (Ec)) 325 mg QAM PO Last administered on 09:05; Admin Dose 325 MG; Start 11/25/16 at 09:00 Atorvastatin Calcium (Lipitor) 20 mg DAILY@21 PO Last administered on 20:13; Admin Dose 20 MG; Start 11/25/16 at 21:00 Hydralazine HCl (Apresoline) 50 mg TID PO Last administered on 11/28/16 12:35 ; Admin Dose 50 MG; Start 11/24/16 at 21:00 Amlodipine Besylate (Norvasc) 10 mg DAILY PO Last administered on 11/28/16 09: 07; Admin Dose 10 MG; Start 11/25/16 at 09:00 Metoprolol Tartrate (Lopressor) 50 mg BID PO Last administered on 11/28/16 09: 06; Admin Dose 50 MG; Start 11/24/16 at 21:00 Donepezil HCl (Aricept) 5 mg DAILY PO Last administered on 11/28/16 09:07; Admin Dose 5 MG; Start 11/25/16 at 09:00 Miscellaneous Information 1 ea NOTE XX ; Start 11/24/16 at 20:30 Glucose (Glutose) 15 gm Q15M PRN PO DECREASED GLUCOSE; Start 11/24/16 at 20:30 Glucose (Glutose) 22.5 gm Q15M PRN PO DECREASED GLUCOSE; Start 11/24/16 at 20: 30 Dextrose (D50w Syringe) 25 ml Q15M PRN IV DECREASED GLUCOSE; Start 11/24/16 at 20:30 Dextrose (D50w Syringe) 50 ml Q15M PRN IV DECREASED GLUCOSE; Start 11/24/16 at 20:30 Glucagon (Glucagen) 1 mg Q15M PRN IM DECREASED GLUCOSE; Start 11/24/16 at 20:30 Glucose (Glutose) 15 gm Q15M PRN BUCCAL DECREASED GLUCOSE; Start 11/24/16 at 20 :30 Diagnostic Test (Pha) (Accu-Chek) 1 ea 02 XX ; Start 11/26/16 at 02:00 Megestrol Acetate (Megace Susp) 400 mg BID PO Last administered on 11/28/16 09 :05; Admin Dose 400 MG; Start 11/26/16 at 21:00 Quetiapine Fumarate (Seroquel) 12.5 mg DAILY NGT Last administered on 09:07; Admin Dose 12.5 MG; Start 11/27/16 at 09:00 Lorazepam (Ativan) 1 mg Q6H PRN IV AGITATION Last administered on 11/26/16 17: 11; Admin Dose 1 MG; Start 11/26/16 at 17:00 Lactulose (Enulose) 20 gm Q8 PRN PO CONSTIPATION Last administered on 09:05; Admin Dose 20 GM; Start 11/27/16 at 15:30 Bisacodyl (Dulcolax Supp) 10 mg DAILY PRN [place] CONSTIPATION; Start 11/27/16 at 15 :30 DANN GONZALEZ Nov 28, 2016 13:59
[2016-11-28] MEDS ORDERED: POTASSIUM CHLORIDE 20 MEQ POWDER FOR ORAL SOLN PO ONE (14:00)
--- NOTE | 2016-11-28 16:02 | PDOCDIS ---
Discharge Instructions CONDITION Patient Condition: Stable HOME CARE INSTRUCTIONS: Special Diet: diabetic puree diet ACTIVITY: Activity Restrictions: No Restrictions FOLLOW UP/APPOINTMENTS Follow-up Plan f/u pcp dr perry 1 wk WAYLON GONZALES MD Nov 28, 2016 16:02
[2016-11-28] MEDS ORDERED: MEGE400O4 PO (16:04)
[2016-11-28] MEDS ORDERED: LUBI24CA7 PO (16:04)
[2016-11-28] MEDS ORDERED: BISA10SU75 PR (16:04)
[2016-11-28] MEDS ORDERED: LACT20SO2 PO (16:04)
[2016-11-28] MEDS ORDERED: QUET25TA33 NGT (16:04)
[2016-11-28] MEDS ORDERED: LEVO250T35 PO (16:04)
== END 2016-11-28 17:30 | disposition home or self-care (01) | DRG 690 ==
LOC: E/R 15:52 → MS2 18:30 → OBSVTOIN 11-25 11:49
PROVIDERS: ADMIT Internal Medicine Nephrology; ATTEND Internal Medicine Nephrology
DX: N39.0 Urinary tract infection, site not specified (principal); E11.22 Type 2 diabetes mellitus with diabetic chronic kidney disease; F03.90 Unspecified dementia, unspecified severity, without behavioral disturbance, psychotic disturbance, mood disturbance, and anxiety; I12.9 Hypertensive chronic kidney disease with stage 1 through stage 4 chronic kidney disease, or unspecified chronic kidney disease; N18.9 Chronic kidney disease, unspecified; K59.00 Constipation, unspecified; R32 Unspecified urinary incontinence
CPT/HCPCS: 36415; 71010; 74176; 80048; 80053; 81001; 82962; 83036; 84484; 85025; 87086; 90686; 93005; 96365; 96375; G0378; J0692; J0696; J1815; J2060; J2405; J7030